=== PATIENT | male | born 1970 | race American Indian/Alaskan Native ===

== ENCOUNTER → 2017-11-25 09:22 | Outpatient (CLI) | payer OTHER, SELFPAY ==
[2017-11-25 11:00] LABS: Hemoglobin A1C% w Est Avg Glu 10.7 % (4.0-6.0)
[2017-11-25 11:10] LABS: Albumin 4.4 g/dL (3.5-5.0); HEMOLYSIS < 15 (0-50); Potassium 3.9 mmol/L (3.4-5.1); Sodium 141 mmol/L (137-145)
[2017-11-25 11:27] LABS: Alanine Aminotransferase 41 IU/L (21-72); Albumin Globulin Ratio 1.2 (1.0-2.8); Alkaline Phosphatase 88 U/L (38-126); Aspartate Aminotransferase 24 IU/L (17-59); Bilirubin Total 0.8 mg/dL (0.2-1.3); Calcium 9.1 mg/dL (8.4-10.2); Cholesterol 244 mg/dL (140-199); Estimated Glomerular Filt Rate > 60.0 mL/min (>60); Globulin 3.6 g/dL (1.7-4.1); Glucose 241 mg/dL (70-100); HDL Cholesterol 37 mg/dL (40-60); Triglycerides 439 mg/dL (35-150)
== END ==
PROVIDERS: Visit Provider Internal Medicine
DX: E11.9 Type 2 diabetes mellitus without complications (principal); E78.5 Hyperlipidemia, unspecified
CPT/HCPCS: 36415; 80053; 80061; 83036

== ENCOUNTER → 2018-02-05 15:40 | Outpatient (CLI) | payer OTHER, SELFPAY ==
[2018-02-05 17:22] LABS: Hemoglobin A1C% w Est Avg Glu 6.3 % (4.0-6.0)
[2018-02-05 17:27] LABS: Alanine Aminotransferase 33 IU/L (21-72); Albumin 4.7 g/dL (3.5-5.0); Albumin Globulin Ratio 1.5 (1.0-2.8); Alkaline Phosphatase 55 U/L (38-126); Aspartate Aminotransferase 27 IU/L (17-59); BUN Creatinine Ratio 13.8 (6-22); Bilirubin Total 0.6 mg/dL (0.2-1.3); Blood Urea Nitrogen 11 mg/dL (9-20); Calcium 9.8 mg/dL (8.4-10.2); Carbon Dioxide 31 mmol/L (22-32); Chloride 102 mmol/L (98-107); Cholesterol 116 mg/dL (140-199); Estimated Glomerular Filt Rate > 60.0 mL/min (>60); Globulin 3.2 g/dL (1.7-4.1); Glucose 80 mg/dL (70-100); HDL Cholesterol 39 mg/dL (40-60); HEMOLYSIS < 15 (0-50); LDL Cholesterol Calculated 47 mg/dL (<100); Potassium 4.9 mmol/L (3.4-5.1); Sodium 143 mmol/L (137-145); Total Protein 7.9 g/dL (6.3-8.2); Triglycerides 149 mg/dL (35-150)
== END ==
PROVIDERS: Visit Provider Internal Medicine
DX: E11.9 Type 2 diabetes mellitus without complications (principal)
CPT/HCPCS: 36415; 80053; 80061; 83036

== ENCOUNTER → 2019-08-14 19:00 | Outpatient (CLI) | payer OTHER, SELFPAY ==
--- NOTE | 2019-08-14 | DI.MRI.S_ITS ---
PROCEDURE: MR SHOULDER RT WO CON INDICATIONS: Other specific arthropathies, not elsewhere classi TECHNIQUE: Noncontrast oblique coronal T2 fast spin echo with fat saturation, oblique sagittal T1 spin echo and T2 fast spin echo with fat saturation, axial T1 spin echo and T2 fast spin echo with fat saturation through the shoulder. COMPARISON: None. FINDINGS: Image quality: Excellent. Rotator cuff: There is tendinosis and low to moderate grade articular and bursal surface partial-thickness tear involving distal supraspinatus and infraspinatus at their insertions greater tuberosity of humeral head extending to musculotendinous junction. There is distal subscapularis tendinosis or low-grade intrasubstance partial thickness tear. No definite full-thickness rotator cuff tendon rupture. Sagittal images demonstrate mild supraspinatus muscle atrophy. Bones and bursae: No bone marrow contusions or fractures. Moderate acromioclavicular joint osteoarthritis is seen with downward osteophyte formation present on musculotendinous junction of supraspinatus. Moderate lateral humeral joint osteoarthritic changes also noted. There is small amount of joint effusion and subacromial subdeltoid bursal fluid. No gross intra-articular loose body. Capsule and soft tissues: In the absence of intra-articular contrast, there is suggestion of superior labral tear extending from 11 to 1:00 position. The glenohumeral ligaments appear intact. Tendinosis and low-grade partial-thickness tear involving proximal intra-articular portion of long head of biceps tendon is also noted. The rotator interval appears normal, without fibrosis. The coracohumeral ligament is normal in thickness. IMPRESSION: 1. Tendinosis and low to moderate grade articular and bursal surface partial-thickness tear involving distal supraspinatus at the insertion of humeral head extending to musculotendinous junction. Tendinosis and low-grade intrasubstance partial-thickness tear involving distal subscapularis. Tendinosis and low-grade partial-thickness tear involving proximal intra-articular portion of long head of biceps tendon. 2. Mild supraspinatus muscle atrophy. 3. Moderate acromioclavicular joint and glenohumeral joint osteoarthritis. 4. Suggestion of superior labral tear at 11 to 1:00 position. Dictated by: Keaton Oleary M.D. on 08/17/2019 at 8:20 Approved by: Keaton Oleary M.D. on 08/17/2019 at 8:29
== END ==
PROVIDERS: Referring Provider Family Medicine; Visit Provider Family Medicine
DX: M75.111 Incomplete rotator cuff tear or rupture of right shoulder, not specified as traumatic (principal); S46.111A Strain of muscle, fascia and tendon of long head of biceps, right arm, initial encounter; M19.011 Primary osteoarthritis, right shoulder
CPT/HCPCS: 73221

== ENCOUNTER → 2020-04-04 12:09 | Outpatient (CLI) | payer OTHER, SELFPAY ==
[2020-04-06 10:36] LABS: Thyrotropin Receptor AB 7.56 IU/L (0.00-1.75)
== END ==
PROVIDERS: PCP Physician Assistant; Referring Provider Family Medicine; Visit Provider Family Medicine
DX: E05.90 Thyrotoxicosis, unspecified without thyrotoxic crisis or storm (principal)
CPT/HCPCS: 36415; 83520

== ENCOUNTER → 2020-10-05 12:48 | Outpatient (CLI) | payer OTHER, SELFPAY ==
--- NOTE | 2020-10-05 | DI.US.S_ITS ---
PROCEDURE: US ABDOMEN INDICATIONS: RIGHT UPPER QUADRANT PAIN TECHNIQUE: Real-time scanning was performed of the abdominal and retroperitoneal organs, with image documentation. COMPARISON: [facility], US, ABDOMEN COMPLETE, 12/09/2012, 9:00. FINDINGS: The liver demonstrates normal size. The liver demonstrates generalized mildly increased echogenicity. This decreases ultrasound sensitivity for detection of hepatic masses. However, the left lobe of the liver is not well seen. The main portal vein demonstrates normal size and demonstrates normal appearing, hepatopetal flow. A mobile gallstone is seen that measures up to 8.7 cm. The gallbladder wall is not thickened, measuring 3 mm or less. No specific pericholecystic fluid is seen. The sonographic Walker sign is negative. The biliary ducts and pancreas are not well seen. This study is overall limited by bowel gas. IMPRESSION: A single mobile gallstone is seen, yet without additional sonographic signs of cholecystitis. Please correlate with physical examination findings, patient presentation, and laboratory values. The liver demonstrates increased echogenicity. This finding is nonspecific, yet it is most commonly attributed to fatty infiltration. Dictated by: Srinivasan Trujillo M.D. on 10/05/2020 at 12:41 Approved by: Srinivasan Trujillo M.D. on 10/05/2020 at 12:42
== END ==
PROVIDERS: PCP Physician Assistant; Referring Provider Family Medicine; Visit Provider Family Medicine
DX: R10.11 Right upper quadrant pain (principal); K80.20 Calculus of gallbladder without cholecystitis without obstruction
CPT/HCPCS: 76705

== ENCOUNTER 2023-04-24 05:13 | Inpatient (IN) | payer OTHER, SELFPAY ==
[2023-04-24] VITALS (17 sets, daily range): BP systolic 106–167; BP diastolic 60–78; PULSE 52–99; RESP 12–20; TEMP 36.7–38.3; O2SAT 93–99; BMI 27.1; BMI 34.5; BMI 33.2
--- NOTE | 2023-04-24 | PATH_ITS ---
[facility] Accession Number: [id number] No. of containers..01 Tissue . 01 Material submitted: . gallbladder - GALLBLADDER AND CONTENTS . 01 Diagnosis: Gallbladder and Contents, Cholecystectomy: Mild chronic focally active calculous cholecystitis. Negative for dysplasia and malignancy. MRV 04/26/2023 1135 Local . 01 Electronically signed: . Luis Gonzalez MD, Pathologist NPI- [id number] . 01 Gross description: . Received in formalin, labeled with the patient's name and gallbladder and contents, is a 7.1 x 3.2 cm, pink-moraes, smooth and glistening gallbladder with a focally ragged and cauterized liver bed resection margin. The gallbladder is intact, and the cystic duct margin is inked blue. The mucosa is orange-moraes with minimal flecking, and a wall thickness of 0.3 cm. There are multiple dark nodular calculi within the bile for an aggregate of 2 x 1 x 0.6 cm. [employer] Filling [employer] sections are submitted in A1. ([id number]) /MRV 04/25/2023 1318 Local . 01 Pathologist provided ICD-10: K80.10 . 01 CPT . 282253 Specimen Comment: A courtesy copy of this report has been sent to [phone] Performed at: 01 [facility] [address] [place] [address], [place], [place] [id number] MD Suresh Lozoya MD Phone: [phone]
--- NOTE | 2023-04-24 05:24 | DI.US.S_ITS ---
PROCEDURE: US ABDOMEN LIMITED INDICATIONS: RUQ pain, known GB disease TECHNIQUE: Real-time scanning was performed of the abdominal and retroperitoneal organs, with image documentation. COMPARISON: [facility], US, US ABDOMEN COMPLETE, 10/05/2020, 13:01. FINDINGS: Liver: Increased echogenicity of the liver. The liver is normal in size. Gallbladder: Several mobile gallstones measuring up to 1.6 centimeters. Several subcentimeter gallstones are nonmobile. Gallbladder wall ranges from 1.1-3 millimeters in thickness. . Biliary ducts: Intrahepatic bile ducts are non-dilated. Extrahepatic bile duct caliber measures 5.2 mm. Normal is 6-7 mm or less in diameter, or 10 mm or less post-cholecystectomy. Pancreas: Not seen secondary to overlying bowel gas IMPRESSION: Cholelithiasis with several nonmobile stones. Gallbladder wall is borderline thickened. Findings may represent early acute cholecystitis and clinical correlation is recommended. Increased hepatic echogenicity noted possibly related to hepatic steatosis but other sources of hepatocellular disease or hepatic cirrhosis cannot be excluded. Recommend clinical correlation. Findings are concordant with preliminary interpretation provided by [facility]. Dictated by: Damian Teixeira M.D. on 04/24/2023 at 8:12 Approved by: Damian Teixeira M.D. on 04/24/2023 at 8:15
--- NOTE | 2023-04-24 05:26 | ED_ITS ---
HPI - Abdominal Pain <Gabriele Núñez DO - Last Filed: 04/25/23 01:01> General Chief Complaint: Abdominal Pain Stated Complaint: rt abd pain Time Seen by Provider: 04/24/23 05:24 Source: patient Mode of arrival: Ambulatory History of Present Illness HPI narrative: 52-year-old male former smoker with history of diabetes presents with his in the chief complaint of severe right upper quadrant pain with radiation to his back. He states he has known gallbladder disease in this feels like prior attacks. It started after eating some potatoes and possibly crab last night. His pain is worse when he eats or drinks and at times when he moves. He is nauseated but denies any vomiting. He is had no fever or chills. Denies any change in bowel habits and has no urinary complaints Related Data Home Medications Medication Instructions Recorded Confirmed atenolol 25 mg tablet 25 mg PO DAILY 04/24/23 04/24/23 metformin 1,000 mg tablet 1,000 mg PO DAILY 04/24/23 04/24/23 methimazole 5 mg tablet 5 mg PO Q OTHER DAY 04/24/23 04/24/23 Previous Rx's Medication Instructions Recorded rosuvastatin 20 mg tablet 20 mg PO DAILY #7 tabs 05/20/18 oxycodone 5 mg tablet 5 mg PO Q3HR PRN Pain, Moderate 04/25/23 (4-6) #20 tabs Allergies Allergy/AdvReac Type Severity Reaction Status Date / Time shellfish derived Allergy Severe SWELLING Verified 04/24/23 10:25 [SHELLFISH DERIVED] Review of Systems <DO Alma Rosario Last Filed: 04/25/23 01:01> Review of Systems Narrative: GENERAL: Denies chills, fatigue, malaise, fever, sweats. HEENT: Denies sinus pain, ear pain, sore throat, difficulty swallowing, dizziness. RESPIRATORY: Denies dyspnea, cough, wheezing, hemoptysis, sputum. CARDIOVASCULAR: Denies chest pain, palpitations, orthopnea, edema, GASTROINTESTINAL: See HPI : Denies dysuria, frequency, incontinence, hematuria, urinary retention. MUSCULOSKELETAL: denies weakness, joint pain, or bony pain SKIN: Denies rash, skin lesions, or other NEUROLOGIC: Denies weakness, headache, numbness, change in speech, confusion, seizures, incoordination. PSYCHIATRIC: No concerning psychosocial issues. 12 point review of systems is negative except for those stated above Patient History <Gabriele Núñez DO - Last Filed: 04/25/23 01:01> Medical History Diabetes mellitus Hyperlipidemia Microalbuminuria (01/2017) Surgical History Status post appendectomy Social History household members: spouse Smoking Status: Former smoker alcohol intake: former Smoking Status: Former smoker Substance Use Type: does not use Exam <Gabriele Núñez DO - Last Filed: 04/25/23 01:01> Narrative Exam Narrative: GENERAL: [52] year old patient appears stated age. Well-developed patient, in obvious distress. In pain, rubbing his right side HEAD: Atraumatic. Normocephalic. EYES: Pupils equal round and reactive. Extraocular motions intact. No scleral icterus. No injection or drainage. ENT: Nose without bleeding, purulent drainage. Throat without erythema, tonsillar hypertrophy or exudate. Airway patent. NECK: Trachea midline. Non tender CARDIOVASCULAR: Regular rate and rhythm without murmurs, gallops, or rubs. RESPIRATORY: Clear to auscultation. Breath sounds equal bilaterally. No wheezes, rales, or rhonchi. GASTROINTESTINAL: Abdomen soft, right upper quadrant pain on exam, nondistended. EXTREMITIES: No edema or joint tenderness. BACK: Nontender without deformity or crepitance. No flank tenderness. NEURO: AOx3. SKIN: No rash or erythema of visible areas Initial Vital Signs Initial Vital Signs: Vital Signs Temperature 98.4 F 04/24/23 05:21 Pulse Rate 68 04/24/23 05:21 Respiratory Rate 18 04/24/23 05:21 Blood Pressure 135/60 04/24/23 05:21 Pulse Oximetry 98 04/24/23 05:21 Oxygen Delivery Method Room Air 04/24/23 05:21 <Vlad Lipscomb MD - Last Filed: 04/30/23 08:24> Initial Vital Signs Initial Vital Signs: Vital Signs Temperature 98.4 F 04/24/23 05:21 Pulse Rate 68 04/24/23 05:21 Respiratory Rate 18 04/24/23 05:21 Blood Pressure 135/60 04/24/23 05:21 Pulse Oximetry 98 04/24/23 05:21 Oxygen Delivery Method Room Air 04/24/23 05:21 Course <Gabriele Núñez DO - Last Filed: 04/25/23 01:01> Orders Ordered: Discontinued Medications Acetaminophen (Acetaminophen 325 Mg Tablet) 650 mg PO Q6H PRN PRN Reason: Fever/Mild Pain (1-3) Atorvastatin Calcium (Atorvastatin 20 Mg Tablet) 40 mg PO BEDTIME PILI Hydromorphone HCl (Hydromorphone 0.5 Mg Inj) 0.5 mg IV NOW ONE Stop: 04/24/23 05:25 Last Admin: 04/24/23 05:31 Dose: 0.5 mg Documented By: COMPA Hydromorphone HCl (Hydromorphone 1 Mg Inj) 0 mg IV Q5MIN PRN PRN Reason: Pain, Mild (1-3) Hydromorphone HCl (Hydromorphone 1 Mg Inj) 0 mg IV Q5MIN PRN PRN Reason: surgical pain Hydromorphone HCl (Hydromorphone 1 Mg Inj) 0 mg IV Q5MIN PRN PRN Reason: Pain, Severe (7-10) Last Admin: 04/24/23 12:20 Dose: 1 mg Documented By: PETER Sodium Chloride (Normal Saline 0.9%) 1,000 mls @ 1,000 mls/hr IV BOLUS ONE Stop: 04/24/23 06:23 Last Infusion: 04/24/23 06:19 Dose: Infused Documented By: Admin: 04/24/23 05:31 Dose: 1,000 mls/hr Documented By: COMPA Piperacillin Sod/Tazobactam (Sod 4.5 gm/ Sodium Chloride) 100 mls @ 200 mls/hr IV NOW ONE Stop: 04/24/23 06:29 Last Infusion: 04/24/23 07:35 Dose: Infused Documented By: Admin: 04/24/23 06:57 Dose: 200 mls/hr Documented By: TOMASZ Lactated Ringer's (Lactated Ringers) 1,000 mls @ 84 mls/hr IV NOW ONE Stop: 04/24/23 22:23 Last Admin: 04/24/23 10:31 Dose: 84 mls/hr Documented By: IF Piperacillin Sod/Tazobactam (Sod 4.5 gm/ Sodium Chloride) 100 mls @ 200 mls/hr IV NOW ONE Stop: 04/24/23 10:44 Last Infusion: 04/24/23 11:35 Dose: Infused Documented By: Admin: 04/24/23 11:21 Dose: 200 mls/hr Documented By: CHRISTIAN Piperacillin Sod/Tazobactam (Sod 3.375 gm/ Sodium Chloride) 100 mls @ 25 mls/hr IV Q8H [facility] Last Admin: 04/24/23 13:44 Dose: Not Given Documented By: CAROL Dextrose (D10w) 100 mls @ 1,200 mls/hr IV PRN PRN PRN Reason: Hypoglycemia Piperacillin Sod/Tazobactam (Sod 3.375 gm/ Sodium Chloride) 100 mls @ 25 mls/hr IV Q8H [facility] Last Infusion: 04/25/23 12:46 Dose: Infused Documented By: Admin: 04/25/23 06:33 Dose: 25 mls/hr Documented By: Infusion: 04/25/23 04:33 Dose: Infused Documented By: Admin: 04/24/23 23:01 Dose: 25 mls/hr Documented By: Infusion: 04/24/23 19:52 Dose: Infused Documented By: Admin: 04/24/23 14:02 Dose: 25 mls/hr Documented By: CAROL Insulin Human Lispro (Insulin Lispro 100 Unit/Ml 3ml Vial) 0 unit SUBCUT [facility]; Protocol Last Admin: 04/25/23 12:00 Dose: 2 unit Documented By: YARED Co-signed By: ARACELI Admin: 04/25/23 07:57 Dose: 1 unit Documented By: ARACELI Co-signed By: Admin: 04/24/23 21:00 Dose: 1 unit Documented By: ROSETTA Co-signed By: (2) Admin: 04/24/23 17:39 Dose: 2 unit Documented By: CAROL Co-signed By: Admin: 04/24/23 13:34 Dose: 1 unit Documented By: CAROL Co-signed By: Naloxone HCl (Naloxone 0.4 Mg/Ml Vial) 0.2 mg IV Q2MIN PRN PRN Reason: Opiate Reversal Non-Formulary Medication ( Methimazole 5mg Tablet) 1 each PO EVERY OTHER DAY PILI Ondansetron HCl (Ondansetron 4 Mg/2 Ml Inj) 4 mg IV NOW ONE Stop: 04/24/23 05:25 Last Admin: 04/24/23 05:31 Dose: 4 mg Documented By: COMPA Ondansetron HCl (Ondansetron 4 Mg/2 Ml Inj) 4 mg IV NOW PRN PRN Reason: Nausea And Vomiting Ondansetron HCl (Ondansetron 4 Mg/2 Ml Inj) 4 mg IV Q8HR PRN PRN Reason: Nausea And Vomiting Oxycodone HCl (Oxycodone Ir 5 Mg Tablet) 5 mg PO PACUNOW PRN PRN Reason: Mild or moderate pain Oxycodone HCl (Oxycodone Ir 5 Mg Tablet) 5 mg PO Q3HR PRN PRN Reason: Pain, Moderate (4-6) Last Admin: 04/25/23 13:29 Dose: 5 mg Documented By: Admin: 04/25/23 04:02 Dose: 5 mg Documented By: Admin: 04/24/23 21:00 Dose: 5 mg Documented By: Admin: 04/24/23 14:14 Dose: 5 mg Documented By: CAROL Oxycodone HCl (Oxycodone Ir 10 Mg Tablet) 10 mg PO Q3HR PRN PRN Reason: Pain, Severe (7-10) Reevaluation(s) Reevaluation #1: Improved symptoms after pain control Consultations Consultation #1: Discussed with on-call surgeon, Dr. Marinelli, happy to be involved for surgical coverage with recommends admission to the hospitalist for diabetic management Vital Signs Vital signs: Vital Signs - 8 hr 04/24/23 05:21 04/24/23 07:08 04/24/23 08:30 Temperature 98.4 F 100.4 F H Pulse Rate 68 98 H Respiratory Rate 18 20 Blood Pressure 135/60 Pulse Oximetry 98 97 Oxygen Delivery Method Room Air Room Air 04/24/23 08:45 04/24/23 08:58 Temperature Pulse Rate 98 H 99 H Respiratory Rate 20 18 Blood Pressure 121/69 Pulse Oximetry 99 99 Oxygen Delivery Method Room Air Room Air <Vlad Lipscomb MD - Last Filed: 04/30/23 08:24> Orders Ordered: Discontinued Medications Acetaminophen (Acetaminophen 325 Mg Tablet) 650 mg PO Q6H PRN PRN Reason: Fever/Mild Pain (1-3) Atorvastatin Calcium (Atorvastatin 20 Mg Tablet) 40 mg PO BEDTIME PILI Hydromorphone HCl (Hydromorphone 0.5 Mg Inj) 0.5 mg IV NOW ONE Stop: 04/24/23 05:25 Last Admin: 04/24/23 05:31 Dose: 0.5 mg Documented By: COMPA Hydromorphone HCl (Hydromorphone 1 Mg Inj) 0 mg IV Q5MIN PRN PRN Reason: Pain, Mild (1-3) Hydromorphone HCl (Hydromorphone 1 Mg Inj) 0 mg IV Q5MIN PRN PRN Reason: surgical pain Hydromorphone HCl (Hydromorphone 1 Mg Inj) 0 mg IV Q5MIN PRN PRN Reason: Pain, Severe (7-10) Last Admin: 04/24/23 12:20 Dose: 1 mg Documented By: PETER Sodium Chloride (Normal Saline 0.9%) 1,000 mls @ 1,000 mls/hr IV BOLUS ONE Stop: 04/24/23 06:23 Last Infusion: 04/24/23 06:19 Dose: Infused Documented By: Admin: 04/24/23 05:31 Dose: 1,000 mls/hr Documented By: COMPA Piperacillin Sod/Tazobactam (Sod 4.5 gm/ Sodium Chloride) 100 mls @ 200 mls/hr IV NOW ONE Stop: 04/24/23 06:29 Last Infusion: 04/24/23 07:35 Dose: Infused Documented By: Admin: 04/24/23 06:57 Dose: 200 mls/hr Documented By: TOMASZ Lactated Ringer's (Lactated Ringers) 1,000 mls @ 84 mls/hr IV NOW ONE Stop: 04/24/23 22:23 Last Admin: 04/24/23 10:31 Dose: 84 mls/hr Documented By: IF Piperacillin Sod/Tazobactam (Sod 4.5 gm/ Sodium Chloride) 100 mls @ 200 mls/hr IV NOW ONE Stop: 04/24/23 10:44 Last Infusion: 04/24/23 11:35 Dose: Infused Documented By: Admin: 04/24/23 11:21 Dose: 200 mls/hr Documented By: CHRISTIAN Piperacillin Sod/Tazobactam (Sod 3.375 gm/ Sodium Chloride) 100 mls @ 25 mls/hr IV Q8H [facility] Last Admin: 04/24/23 13:44 Dose: Not Given Documented By: CAROL Dextrose (D10w) 100 mls @ 1,200 mls/hr IV PRN PRN PRN Reason: Hypoglycemia Piperacillin Sod/Tazobactam (Sod 3.375 gm/ Sodium Chloride) 100 mls @ 25 mls/hr IV Q8H [facility] Last Infusion: 04/25/23 12:46 Dose: Infused Documented By: Admin: 04/25/23 06:33 Dose: 25 mls/hr Documented By: Infusion: 04/25/23 04:33 Dose: Infused Documented By: Admin: 04/24/23 23:01 Dose: 25 mls/hr Documented By: Infusion: 04/24/23 19:52 Dose: Infused Documented By: Admin: 04/24/23 14:02 Dose: 25 mls/hr Documented By: CAROL Insulin Human Lispro (Insulin Lispro 100 Unit/Ml 3ml Vial) 0 unit SUBCUT [facility]; Protocol Last Admin: 04/25/23 12:00 Dose: 2 unit Documented By: YARED Co-signed By: ARACELI Admin: 04/25/23 07:57 Dose: 1 unit Documented By: ARACELI Co-signed By: Admin: 04/24/23 21:00 Dose: 1 unit Documented By: ROSETTA Co-signed By: (2) Admin: 04/24/23 17:39 Dose: 2 unit Documented By: CAROL Co-signed By: Admin: 04/24/23 13:34 Dose: 1 unit Documented By: CAROL Co-signed By: Naloxone HCl (Naloxone 0.4 Mg/Ml Vial) 0.2 mg IV Q2MIN PRN PRN Reason: Opiate Reversal Non-Formulary Medication ( Methimazole 5mg Tablet) 1 each PO EVERY OTHER DAY [facility] Ondansetron HCl (Ondansetron 4 Mg/2 Ml Inj) 4 mg IV NOW ONE Stop: 04/24/23 05:25 Last Admin: 04/24/23 05:31 Dose: 4 mg Documented By: COMPA Ondansetron HCl (Ondansetron 4 Mg/2 Ml Inj) 4 mg IV NOW PRN PRN Reason: Nausea And Vomiting Ondansetron HCl (Ondansetron 4 Mg/2 Ml Inj) 4 mg IV Q8HR PRN PRN Reason: Nausea And Vomiting Oxycodone HCl (Oxycodone Ir 5 Mg Tablet) 5 mg PO PACUNOW PRN PRN Reason: Mild or moderate pain Oxycodone HCl (Oxycodone Ir 5 Mg Tablet) 5 mg PO Q3HR PRN PRN Reason: Pain, Moderate (4-6) Last Admin: 04/25/23 13:29 Dose: 5 mg Documented By: Admin: 04/25/23 04:02 Dose: 5 mg Documented By: Admin: 04/24/23 21:00 Dose: 5 mg Documented By: Admin: 04/24/23 14:14 Dose: 5 mg Documented By: CAROL Oxycodone HCl (Oxycodone Ir 10 Mg Tablet) 10 mg PO Q3HR PRN PRN Reason: Pain, Severe (7-10) Vital Signs Vital signs: Vital Signs - 8 hr 04/24/23 05:21 04/24/23 07:08 04/24/23 08:30 Temperature 98.4 F 100.4 F H Pulse Rate 68 98 H Respiratory Rate 18 20 Blood Pressure 135/60 Pulse Oximetry 98 97 Oxygen Delivery Method Room Air Room Air 04/24/23 08:45 04/24/23 08:58 Temperature Pulse Rate 98 H 99 H Respiratory Rate 20 18 Blood Pressure 121/69 Pulse Oximetry 99 99 Oxygen Delivery Method Room Air Room Air MDM - Abdominal Pain <Gabriele Núñez DO - Last Filed: 04/25/23 01:01> Lab Data 04/25/23 04:00 04/25/23 04:00 Labs: Lab Results 04/24/23 Range/Units 05:24 WBC 7.4 (4.5-11.0) X10^3/uL RBC 5.11 (4.5-5.9) X10^6/uL Hgb 15.2 (13.5-17.5) g/dL Hct 44.7 (41-53) % MCV 87.5 (80-100) fL MCH 29.8 (26-34) PG MCHC 34.1 (30-36) % RDW 13.9 (11.6-14.8) % Plt Count 219 (150-400) X10^3/uL Neut % (Auto) 83.2 H (50-75) % Lymph % (Auto) 10.8 L (25-40) % [place] % (Auto) 5.1 (3-14) % Eos % (Auto) 0.5 L (2-4) % Baso % (Auto) 0.4 (0-2) % Neut # (Auto) 6200 (9601-5424) /uL Lymph # (Auto) 800 L (7309-7548) /uL [place] # (Auto) 400 (0-900) /uL Eos # (Auto) 0 (0-450) /uL Baso # (Auto) 0 (0-100) /uL Sodium 139 (137-145) mmol/L Potassium 4.4 (3.4-5.1) mmol/L Chloride 103 (98-107) mmol/L Carbon Dioxide 27 (22-32) mmol/L BUN 9 (9-20) mg/dL Creatinine 0.78 (0.66-1.25) mg/dL Estimated GFR > 60 (>60) mL/min BUN/Creatinine Ratio 11.5 (6-22) Glucose 167 H (70-100) mg/dL Calcium 9.4 (8.4-10.2) mg/dL Total Bilirubin 2.4 H (0.2-1.3) mg/dL AST 313 H (17-59) IU/L ALT 220 H (<50) IU/L Alkaline Phosphatase 84 (38-126) U/L Total Protein 8.6 H (6.3-8.2) g/dL Albumin 4.8 (3.5-5.0) g/dL Globulin 3.8 (1.7-4.1) g/dL Albumin/Globulin Ratio 1.3 (1.0-2.8) Lipase 143 (23-300) U/L Point of care testing: Urine Dip Bedside Urine Glucose Negative Bedside Urine Bilirubin - Negative Bedside Urine Ketone - Negative Urine Specific [place] 1.005 Bedside Urine Occult Blood - Negative Bedside Urine pH 8.0 Bedside Urine Protein - Negative Bedside Urine Urobilinogen - Negative Bedside Urine Nitrite - Negative Bedside Urine Leukocytes - Negative Esterase MDM Narrative Medical decision making narrative: [52] year old patient presents with right upper quadrant pain Multiple etiologies for patient's symptoms considered including, but not limited to: [Gallbladder disease versus bowel obstruction versus pancreatitis versus other] Prior Charts reviewed in our EMR Primary Historian: patient Labs reviewed and interpreted by myself: No leukocytosis though there is a relative left shift, primary electrolytes within normal, glucose slightly elevated at 167, T bili 2.4, AST 313, ALT 220, alk phos 84 Imaging reviewed: Ultrasound demonstrates cholelithiasis with several nonmobile stones in the proximal gallbladder with gallbladder wall thickening and wall edema, no biliary obstruction Consultations: Discussed with on-call surgeon Dr. Marinelli. Recommends NPO, pain control, antibiotics, admission to hospitalist, likely surgical intervention this afternoon <Vlad Lipscomb MD - Last Filed: 04/30/23 08:24> Lab Data Labs: Lab Results 04/24/23 Range/Units 05:24 WBC 7.4 (4.5-11.0) X10^3/uL RBC 5.11 (4.5-5.9) X10^6/uL Hgb 15.2 (13.5-17.5) g/dL Hct 44.7 (41-53) % MCV 87.5 (80-100) fL MCH 29.8 (26-34) PG MCHC 34.1 (30-36) % RDW 13.9 (11.6-14.8) % Plt Count 219 (150-400) X10^3/uL Neut % (Auto) 83.2 H (50-75) % Lymph % (Auto) 10.8 L (25-40) % [place] % (Auto) 5.1 (3-14) % Eos % (Auto) 0.5 L (2-4) % Baso % (Auto) 0.4 (0-2) % Neut # (Auto) 6200 (7153-2996) /uL Lymph # (Auto) 800 L (8865-9316) /uL [place] # (Auto) 400 (0-900) /uL Eos # (Auto) 0 (0-450) /uL Baso # (Auto) 0 (0-100) /uL Sodium 139 (137-145) mmol/L Potassium 4.4 (3.4-5.1) mmol/L Chloride 103 (98-107) mmol/L Carbon Dioxide 27 (22-32) mmol/L BUN 9 (9-20) mg/dL Creatinine 0.78 (0.66-1.25) mg/dL Estimated GFR > 60 (>60) mL/min BUN/Creatinine Ratio 11.5 (6-22) Glucose 167 H (70-100) mg/dL Calcium 9.4 (8.4-10.2) mg/dL Total Bilirubin 2.4 H (0.2-1.3) mg/dL AST 313 H (17-59) IU/L ALT 220 H (<50) IU/L Alkaline Phosphatase 84 (38-126) U/L Total Protein 8.6 H (6.3-8.2) g/dL Albumin 4.8 (3.5-5.0) g/dL Globulin 3.8 (1.7-4.1) g/dL Albumin/Globulin Ratio 1.3 (1.0-2.8) Lipase 143 (23-300) U/L Point of care testing: Urine Dip Bedside Urine Glucose Negative Bedside Urine Bilirubin - Negative Bedside Urine Ketone - Negative Urine Specific [place] 1.005 Bedside Urine Occult Blood - Negative Bedside Urine pH 8.0 Bedside Urine Protein - Negative Bedside Urine Urobilinogen - Negative Bedside Urine Nitrite - Negative Bedside Urine Leukocytes - Negative Esterase MDM Narrative Medical decision making narrative: [52] year old patient presents with right upper quadrant pain Multiple etiologies for patient's symptoms considered including, but not limited to: [Gallbladder disease versus bowel obstruction versus pancreatitis versus other] Prior Charts reviewed in our EMR Primary Historian: patient Labs reviewed and interpreted by myself: No leukocytosis though there is a relative left shift, primary electrolytes within normal, glucose slightly elevated at 167, T bili 2.4, AST 313, ALT 220, alk phos 84 Imaging reviewed: Ultrasound demonstrates cholelithiasis with several nonmobile stones in the proximal gallbladder with gallbladder wall thickening and wall edema, no biliary obstruction Consultations: Discussed with on-call surgeon Dr. Marinelli. Recommends NPO, pain control, antibiotics, admission to hospitalist, likely surgical intervention this afternoon April 24, 2023 at 7:00 a.m.Ruel: ?sign out from Dr Núñez, surgical service has been contacted. However patient to be admitted to hospitalist service with history of diabetes. Plan for surgery later this afternoon. Antibiotics have been started. No MRCP needed 10:00 a.m.. Spoke with hospitalist dr daniels, he will admit patient Discharge Plan Departure Patient Disposition: Admitted As Inpatient Clinical Impression: Acute cholecystitis Admit Date/Time: 04/24/23 10:29 Admit Provider: Arden Daniels
[2023-04-24 05:31] LABS: Add Manual Diff / Slide Review NO; Basophils Absolute Auto 0 /uL (0-100); Basophils Percent Auto 0.4 % (0-2); Eosinophils Absolute Auto 0 /uL (0-450); Eosinophils Percent Auto 0.5 % (2-4); Hematocrit 44.7 % (41-53); Hemoglobin 15.2 g/dL (13.5-17.5); Lymphocytes Absolute Auto 800 /uL (1100-4500); Lymphocytes Percent Auto 10.8 % (25-40); Mean Corpuscular HGB Conc 34.1 % (30-36); Mean Corpuscular Hemoglobin 29.8 PG (26-34); Mean Corpuscular Volume 87.5 fL (80-100); Monocytes Absolute Auto 400 /uL (0-900); Monocytes Percent Auto 5.1 % (3-14); Neutrophils Absolute Auto 6200 /uL (1500-7000); Neutrophils Percent Auto 83.2 % (50-75); Platelet Count 219 X10^3/uL (150-400); Red Blood Cell Count 5.11 X10^6/uL (4.5-5.9); Red Cell Distribution Width 13.9 % (11.6-14.8); White Blood Cell Count 7.4 X10^3/uL (4.5-11.0)
[2023-04-24] MEDS: HYDROMORPHONE 0.5 MG INJ IV (05:31)
[2023-04-24] MEDS: ONDANSETRON 4 MG/2 ML INJ IV (05:31)
[2023-04-24] MEDS: SODIUM CHLORIDE 0.9% 1,000 ML 1000 ML IV (05:31)
[2023-04-24 05:45] LABS: Alanine Aminotransferase 220 IU/L (<50); Albumin 4.8 g/dL (3.5-5.0); Albumin Globulin Ratio 1.3 (1.0-2.8); Alkaline Phosphatase 84 U/L (38-126); Aspartate Aminotransferase 313 IU/L (17-59); BUN Creatinine Ratio 11.5 (6-22); Bilirubin Total 2.4 mg/dL (0.2-1.3); Blood Urea Nitrogen 9 mg/dL (9-20); Calcium 9.4 mg/dL (8.4-10.2); Carbon Dioxide 27 mmol/L (22-32); Chloride 103 mmol/L (98-107); Estimated Glomerular Filt Rate > 60 mL/min (>60); Globulin 3.8 g/dL (1.7-4.1); Glucose 167 mg/dL (70-100); HEMOLYSIS 16 (0-50); Lipase 143 U/L (23-300); Potassium 4.4 mmol/L (3.4-5.1); Sodium 139 mmol/L (137-145); Total Protein 8.6 g/dL (6.3-8.2)
[2023-04-24] MEDS: PIPERACILLIN/TAZO 4.5 GM in SODIUM CHLORIDE 0.9% 100 ML IV ×2 (06:57→11:21)
--- NOTE | 2023-04-24 10:10 | PC.NURSE ---
Pt being transferred to pre-op by VIVIANE Fernandes.
--- NOTE | 2023-04-24 10:20 | P.CONS_ITS ---
History of Present Illness Consult details Date Patient Seen: 04/24/23 Time Patient Seen: 10:20 Chief complaint: rt abd pain Narrative: 52-year-old man with a history of diabetes and active tobacco use who presented to [facility] Emergency Department 04/24 with complaint of severe right upper quadrant pain. He is a history of biliary colic and this felt like a previous similar attack but persisted for a prolonged duration and was more severe in pain. At admission temperature 100.4? white blood cell count 7 total bilirubin 2.4, AST 310, ALT 220. Abdominal ultrasound personally reviewed demonstrates multiple gallstones with wall thickening. Previous abdominal surgery, open appendectomy. Meds Home Medications and Allergies Home Medications Medication Instructions Recorded Confirmed Type Glucose: Home Monitor 0 dev ##1 05/15/12 02/26/18 Rx blood sugar diagnostic (True #100 ea 11/27/17 02/26/18 Rx Metrix Glucose Test Strip) metformin 850 mg tablet 850 mg PO TID #270 tabs 02/26/18 Rx rosuvastatin 20 mg tablet 20 mg PO DAILY #7 tabs 05/20/18 Rx atenolol 25 mg tablet 25 mg PO DAILY 04/24/23 04/24/23 History methimazole 5 mg tablet 5 mg PO Q OTHER DAY 04/24/23 04/24/23 History Allergies Allergy/AdvReac Type Severity Reaction Status Date / Time shellfish derived Allergy Severe SWELLING Verified 04/24/23 10:25 [SHELLFISH DERIVED] Exam Vital Signs (past 8 hours): - 04/24/23 05:21 04/24/23 07:08 04/24/23 08:30 Temperature 98.4 F 100.4 F H Pulse Rate 68 98 H Respiratory Rate 18 20 Blood Pressure 135/60 Pulse Oximetry 98 97 Oxygen Delivery Method Room Air Room Air 04/24/23 08:45 04/24/23 08:58 Temperature Pulse Rate 98 H 99 H Respiratory Rate 20 18 Blood Pressure 121/69 Pulse Oximetry 99 99 Oxygen Delivery Method Room Air Room Air Oxygen Delivery Method Room Air Objective Labs 04/24/23 05:24 04/24/23 05:24 Labs: Laboratory Results - last 24 hr 04/24/23 05:24 WBC 7.4 RBC 5.11 Hgb 15.2 Hct 44.7 MCV 87.5 MCH 29.8 MCHC 34.1 RDW 13.9 Plt Count 219 Neut % (Auto) 83.2 H Lymph % (Auto) 10.8 L [place] % (Auto) 5.1 Eos % (Auto) 0.5 L Baso % (Auto) 0.4 Neut # (Auto) 6200 Lymph # (Auto) 800 L [place] # (Auto) 400 Eos # (Auto) 0 Baso # (Auto) 0 Sodium 139 Potassium 4.4 Chloride 103 Carbon Dioxide 27 BUN 9 Creatinine 0.78 Estimated GFR > 60 BUN/Creatinine Ratio 11.5 Glucose 167 H Calcium 9.4 Total Bilirubin 2.4 H AST 313 H ALT 220 H Alkaline Phosphatase 84 Total Protein 8.6 H Albumin 4.8 Globulin 3.8 Albumin/Globulin Ratio 1.3 Lipase 143 [facility] Medical History Diabetes mellitus Hyperlipidemia Microalbuminuria (01/2017) Surgical History Status post appendectomy Tobacco & Substance Use Smoking Status: Former smoker Assessment & Plan Assessment and plan (1) Acute cholecystitis: Status: Acute Assessment & Plan narrative: 52-year-old man history of diabetes and active tobacco use who presents with symptoms and radiographic findings consistent with acute cholecystitis. Labs and ultrasound personally reviewed. Slight hyperbilirubinemia normal common bile duct diameter less likely choledocolithiasis. Trend TB post op if remains elevated MRCP. I discussed these findings with the patient and his . I recommended that we proceed with a laparoscopic cholecystectomy. Overview of the operation was discussed. Operative risks including hemorrhage, infection, damage to surrounding structures, bile leak were discussed. Questions have been answered he is in agreement with this plan. He provides his written and verbal consent to proceed.
[2023-04-24] MEDS: LACTATED RINGERS 1,000 ML 84 ML IV (10:31)
--- NOTE | 2023-04-24 10:33 | SUR.OPER ---
Supine on padded OR bed, head on pillow, safety belt at thigh, left arm padded and tucked at side. Right arm secured on padded arm board <90 degrees abduction. Legs uncrossed. Padded footboard in place. Tape over blanket to secure lower legs.
--- NOTE | 2023-04-24 11:36 | SUR.OPER ---
Patient removed partial denture and placed in labelled denture container. Container taken with patient to PACU.
[2023-04-24] MEDS: HYDROMORPHONE 1 MG INJ IV (12:20)
--- NOTE | 2023-04-24 12:22 | PM.OP.1 ---
Operative Date/Time/Diagnoses Date of procedure: 04/24/23 Time of procedure: 12:22 Pre-op diagnosis: Acute cholecystitis Post-op diagnosis: same Procedure & Clinicians Procedure: Laparoscopic cholecystectomy Same procedure as scheduled: Yes Indications: 52-year-old man with symptoms and radiographic findings consistent with acute cholecystitis. Following discussion of the risks benefits and alternatives he elects to proceed with cholecystectomy. Surgeon: Erickson Whyte Click Yes if Unassisted: Yes Anesthesia Type: General Operative Notes Findings: Acute on chronic cholecystitis. Critical view of safety established. Specimen(s): other (Gallbladder) Estimated Blood Loss (mL): 10 Procedure in detail: The patient was placed supine on the table and bilateral lower extremity compression devices were applied. Anesthesia was induced they were intubated with an endotracheal tube and received 2g of Ancef. A time-out was performed. They were prepped and draped in sterile fashion. An infraumbilical incision was made. The fascia was elevated incised and the abdomen was entered atraumatically. A blunt tip 12mm balloon trocar was then inserted, pneumoperitoneum was established and inspection of the abdomen demonstrated no evidence of injury. They were placed head up and right side up and then a 11 mm port was placed high in the epigastrium and two 5mm in the right upper quadrant. The gallbladder was acutely inflamed. The gallbladder was grasped by the fundus and retracted over the liver and retracted laterally by the infundibulum. Using electrocautery the lateral plane between the gallbladder and the liver was opened towards the fundus. The gallbladder was then retracted laterally and the medial plane was developed in the same manner. With the gallbladder mobilized the bottom of the cystic plate was visualized. The hepatocystic triangle was meticulosly skeletonized with blunt dissection of fat and fibrous tissue from both the front and the back. Only two structures were then clearly seen entering the gallbladder the cystic duct and the cystic artery. With the critical view of safety fully established the cystic duct was clipped twice proximally and once distally using the 10 mm Weck hemoclip applied under direct visualization and then sharply divided. The cystic artery was divided in the same fashion. The gallbladder was removed from the liver bed using electro cautery. The liver bed was then inspected for hemostasis and this was achieved. The abdomen was irrigated with sterile saline and inspection was made that showed the clips in good position. The specimen was removed using Endo-Catch. The abdomen was desufflated. The umbilical fascia was closed with 0 Vicryl in a [id number] fashion under direct visualization. Skin incisions were irrigated and closed with 4-0 Monocryl. 30 ml of 0.25% bupivacaine was infiltrated into the subcutaneous tissue of the incisions. The wounds were sealed with Dermabond. Patient emerged from anesthesia was extubated and transferred to recovery in stable condition. The sponge and instrument count at the end of the operation was correct. Complications: none Post-operative Condition: stable Disposition: Acute Care
[2023-04-24] MEDS: INSULIN LISPRO 100 UNIT/ML 3ML VIAL SUBCUT ×3 (13:34→21:00)
[2023-04-24] MEDS: PIPERACILLIN/TAZO 3.375 GM in SODIUM CHLORIDE 0.9% 100 ML IV ×2 (14:02→23:01)
[2023-04-24] MEDS: OXYCODONE IR 5 MG TABLET PO ×2 (14:14→21:00)
--- NOTE | 2023-04-24 14:25 | PC.NURSE ---
Completed patient admission, pt resting comfortably, VSS, pain controlled with non-pharmacological and PRN medications. Pt due to void at 6pm, pt aware.
[2023-04-24 15:39] LABS: MRSA (Nasal) PCR Not Detected (Not Detect)
--- NOTE | 2023-04-24 18:35 | P.HP_ITS ---
History of Present Illness History of Present Illness Date Patient Seen: 04/24/23 Time Patient Seen: 15:00 Chief complaint: rt abd pain Narrative: Mr. Mike is a 52M with PMH DM who presents to the hospital with abdominal pain. He has known gallbladder disease. He had abdominal pain on his right upper quadrant that started after eating yesterday. He also had nausea so he presented to the hospital. In the ED workup was done, vitals showed fever to 101, heart rate 90s. Labs notable for WBC 7.4, hgb 15.2. Bili 2.4, AST 313, ALT 220. Abdominal ultrasound with several stones, gallbladder wall thickened. Surgery was consulted and recommended gallbladder removal. He was admitted for further treatment. [facility] Medical History Diabetes mellitus Hyperlipidemia Microalbuminuria (01/2017) Surgical History Status post appendectomy Social History household members: spouse Smoking Status: Former smoker alcohol intake: former Meds Home Medications and Allergies Home Medications Medication Instructions Recorded Confirmed Type rosuvastatin 20 mg tablet 20 mg PO DAILY #7 tabs 05/20/18 04/24/23 Rx atenolol 25 mg tablet 25 mg PO DAILY 04/24/23 04/24/23 History metformin 1,000 mg tablet 1,000 mg PO DAILY 04/24/23 04/24/23 History methimazole 5 mg tablet 5 mg PO Q OTHER DAY 04/24/23 04/24/23 History Allergies Allergy/AdvReac Type Severity Reaction Status Date / Time shellfish derived Allergy Severe SWELLING Verified 04/24/23 10:25 [SHELLFISH DERIVED] Review of Systems Review of Systems Narrative: 14 systems reviewed and negative aside from what is noted in HPI Exam Vital Signs (past 8 hours): - 04/24/23 12:05 04/24/23 12:10 04/24/23 12:15 Temperature 101 F H Pulse Rate 96 H 92 H 89 Respiratory Rate 12 13 13 Blood Pressure 116/68 116/70 111/64 Pulse Oximetry 96 96 96 Oxygen Delivery Method Room Air Room Air Room Air Oxygen Flow Rate 04/24/23 12:20 04/24/23 12:30 04/24/23 12:45 Temperature 101 F H 99.9 F H Pulse Rate 85 83 Respiratory Rate 12 12 Blood Pressure 110/69 106/69 Pulse Oximetry 98 96 Oxygen Delivery Method Nasal Cannula Nasal Cannula Oxygen Flow Rate 2 2 04/24/23 12:58 04/24/23 13:12 04/24/23 13:30 Temperature 99.9 F H 99.0 F Pulse Rate 89 71 Respiratory Rate 18 18 Blood Pressure 117/62 113/66 Pulse Oximetry 93 95 Oxygen Delivery Method Room Air Oxygen Flow Rate 0 0 04/24/23 14:30 04/24/23 16:00 Temperature 98.3 F 98.0 F Pulse Rate 73 60 Respiratory Rate 18 18 Blood Pressure 111/64 167/78 H Pulse Oximetry 95 96 Oxygen Delivery Method Oxygen Flow Rate 0 0 Oxygen Delivery Method Room Air Oxygen Flow Rate 0 Narrative Exam Narrative: GEN: no acute distress CV: regular rate and rhythm, no murmurs PULM: clear bilaterally ABD: soft, minimally tender EXT: warm and well perfused, no edema Objective Labs 04/24/23 05:24 04/24/23 05:24 Labs: Laboratory Results - last 24 hr 04/24/23 04/24/23 05:24 12:54 WBC 7.4 RBC 5.11 Hgb 15.2 Hct 44.7 MCV 87.5 MCH 29.8 MCHC 34.1 RDW 13.9 Plt Count 219 Neut % (Auto) 83.2 H Lymph % (Auto) 10.8 L [place] % (Auto) 5.1 Eos % (Auto) 0.5 L Baso % (Auto) 0.4 Neut # (Auto) 6200 Lymph # (Auto) 800 L [place] # (Auto) 400 Eos # (Auto) 0 Baso # (Auto) 0 Sodium 139 Potassium 4.4 Chloride 103 Carbon Dioxide 27 BUN 9 Creatinine 0.78 Estimated GFR > 60 BUN/Creatinine Ratio 11.5 Glucose 167 H Calcium 9.4 Total Bilirubin 2.4 H AST 313 H ALT 220 H Alkaline Phosphatase 84 Total Protein 8.6 H Albumin 4.8 Globulin 3.8 Albumin/Globulin Ratio 1.3 Lipase 143 Nasal Screen MRSA (PCR) Not detected Assessment & Plan Assessment & Plan narrative: 1. Acute cholecystitis -s/p cholecystectomy with surgery -pain improved -repeat LFTs tomorrow to make sure not rising 2. Type 2 DM -hold metformin today -ordered for insulin sliding scale I have discussed plan with patient. I have discussed plan of care with ED physician, surgeon, bedside nurse. I have reviewed labs, imaging. CODE: Full Proxy: Todd Mike [facility] VTE Deep Vein Thrombosis/Pulmonary Embolism Present on Admission: No MIPS - Meds 'Current medications' to include all prescriptions, [id number] products, herbals, cannabis/cannabidiol products, and vitamin/mineral/dietary (nutritional) supplements. I have utilized all available resources to obtain, update, or review the patient?s current medications. [If Yes, STOP here]: Yes
[2023-04-25 02:00] VITALS: BP 103/57; PULSE 59; RESP 16; TEMP 37.3; O2SAT 97
[2023-04-25] MEDS: OXYCODONE IR 5 MG TABLET PO ×2 (04:02→13:29)
[2023-04-25 05:06] LABS: Add Manual Diff / Slide Review NO; Basophils Absolute Auto 0 /uL (0-100); Basophils Percent Auto 0.2 % (0-2); Eosinophils Absolute Auto 0 /uL (0-450); Hematocrit 39.1 % (41-53); Hemoglobin 13.4 g/dL (13.5-17.5); Lymphocytes Absolute Auto 300 /uL (1100-4500); Lymphocytes Percent Auto 3.2 % (25-40); Mean Corpuscular HGB Conc 34.2 % (30-36); Mean Corpuscular Hemoglobin 30.1 PG (26-34); Mean Corpuscular Volume 87.9 fL (80-100); Monocytes Absolute Auto 500 /uL (0-900); Monocytes Percent Auto 4.7 % (3-14); Neutrophils Absolute Auto 9300 /uL (1500-7000); Neutrophils Percent Auto 91.9 % (50-75); Platelet Count 189 X10^3/uL (150-400); Red Blood Cell Count 4.44 X10^6/uL (4.5-5.9); Red Cell Distribution Width 13.8 % (11.6-14.8); White Blood Cell Count 10.2 X10^3/uL (4.5-11.0)
[2023-04-25 05:22] LABS: Alanine Aminotransferase 302 IU/L (<50); Albumin 3.8 g/dL (3.5-5.0); Albumin Globulin Ratio 1.2 (1.0-2.8); Alkaline Phosphatase 93 U/L (38-126); Aspartate Aminotransferase 196 IU/L (17-59); Bilirubin Total 3.9 mg/dL (0.2-1.3); Bilirubin Unconjugated 1.7 mg/dL (0.0-1.1); Globulin 3.2 g/dL (1.7-4.1); HEMOLYSIS < 15 (0-50)
[2023-04-25 05:24] LABS: BUN Creatinine Ratio 10.5 (6-22); Blood Urea Nitrogen 10 mg/dL (9-20); Calcium 8.6 mg/dL (8.4-10.2); Carbon Dioxide 29 mmol/L (22-32); Chloride 103 mmol/L (98-107); Estimated Glomerular Filt Rate > 60 mL/min (>60); Glucose 157 mg/dL (70-100); HEMOLYSIS < 15 (0-50); Potassium 3.9 mmol/L (3.4-5.1); Sodium 139 mmol/L (137-145)
[2023-04-25] MEDS: PIPERACILLIN/TAZO 3.375 GM in SODIUM CHLORIDE 0.9% 100 ML IV (06:33)
[2023-04-25] MEDS: INSULIN LISPRO 100 UNIT/ML 3ML VIAL SUBCUT ×2 (07:57→12:00)
[2023-04-25 08:00] VITALS: BP 110/55; PULSE 61; RESP 16; TEMP 37.7; O2SAT 96
--- NOTE | 2023-04-25 08:16 | DI.MRI.S_ITS ---
PROCEDURE: MR ABDOMEN WO/W CON INDICATIONS: elevated bili (r/o CBD stone) TECHNIQUE: Coronal HASTE, axial 2D FLASH in- and [id number]; axial breath-hold T2 FSE. Dynamic axial VIBE during the administration of contrast; post-contrast coronal VIBE or 2D FLASH with fat saturation from the hepatic dome to the iliac crests. Optional diffusion weighted imaging and ADC may be performed. COMPARISON: [facility], CT, ABD/PELVIS W/CON (PNL), 04/01/2012, 11:18. [facility], US, US ABDOMEN LIMITED, 04/24/2023, 5:47. FINDINGS: Image quality: Excellent. Lung bases: No basal pleural effusions. Heart size is normal. Solid organs: Liver is normal in size and enhancement. Gallbladder is surgically absent. Susceptibility artifact. Biliary system is non dilated. No choledocholithiasis. Pancreas is normal in morphology. No pancreatic ductal dilatation. Pancreas divisum. Spleen is normal in size and enhancement. No adrenal nodules. Both kidneys demonstrate normal size and enhancement, without hydronephrosis. Nodes and vessels: No retroperitoneal or mesenteric adenopathy by size criteria. Susceptibility artifact near the cecum likely due to prior appendectomy. Aorta and inferior vena cava are normal in size. Bowel and peritoneum: Unenhanced bowel loops are normal in caliber. No free fluid. Bones and soft tissues: No ventral hernias. Mild stranding in the abdominal wall due to recent surgery. Bone marrow is normal in overall signal. IMPRESSION: 1. No choledocholithiasis. No biliary or pancreatic ductal dilatation. 2. Post cholecystectomy. No unexpected fluid collection. 3. Pancreas divisum. Dictated by: Romaine Whittington M.D. on 04/25/2023 at 11:30 Approved by: Romaine Whittington M.D. on 04/25/2023 at 11:49
--- NOTE | 2023-04-25 08:54 | P.PN_ITS ---
Subjective Subjective Date Patient Seen: 04/25/23 Time Patient Seen: 08:54 Interval history: Postop day 1 status post laparoscopic cholecystectomy for acute on chronic cholecystitis. Pain improved from yesterday. Tolerant of diet. Exam Vital Signs (past 8 hours): - 04/25/23 02:00 Temperature 99.2 F Pulse Rate 59 L Respiratory Rate 16 Blood Pressure 103/57 L Pulse Oximetry 97 Oxygen Flow Rate 0 Oxygen Delivery Method Room Air Oxygen Flow Rate 0 Narrative Exam Narrative: General adult man alert oriented no acute distress Abdomen soft appropriately tender to palpation Objective Labs 04/25/23 04:00 04/25/23 04:00 Labs: Laboratory Results - last 24 hr 04/24/23 04/25/23 12:54 04:00 WBC 10.2 RBC 4.44 L Hgb 13.4 L Hct 39.1 L MCV 87.9 MCH 30.1 MCHC 34.2 RDW 13.8 Plt Count 189 Neut % (Auto) 91.9 H Lymph % (Auto) 3.2 L [place] % (Auto) 4.7 Eos % (Auto) 0.0 L Baso % (Auto) 0.2 Neut # (Auto) 9300 H Lymph # (Auto) 300 L [place] # (Auto) 500 Eos # (Auto) 0 Baso # (Auto) 0 Sodium 139 Potassium 3.9 Chloride 103 Carbon Dioxide 29 BUN 10 Creatinine 0.95 Estimated GFR > 60 BUN/Creatinine Ratio 10.5 Glucose 157 H Calcium 8.6 Total Bilirubin 3.9 H Conjugated Bilirubin 1.0 H Unconjugated Bilirubin 1.7 H AST 196 H ALT 302 H Alkaline Phosphatase 93 Total Protein 7.0 Albumin 3.8 Globulin 3.2 Albumin/Globulin Ratio 1.2 Nasal Screen MRSA (PCR) Not detected [facility] Medical History Diabetes mellitus Hyperlipidemia Microalbuminuria (01/2017) Surgical History Status post appendectomy Social History household members: spouse Smoking Status: Former smoker alcohol intake: former Assessment & Plan Post-op Postoperative Procedures: Procedures Operation Date: 04/24/23 17:30 Actual Procedure Side Surgeon p Laparoscopic Cholecystectomy Erickson Whyte MD Postoperative status narrative: 52-year-old man postoperative day 1 status post laparoscopic cholecystectomy for acute on chronic cholecystitis. # hyperbilirubinemia. Present at admission initial total bilirubin was 2.4, 3.9 today with mild transaminitis. Recommend proceeding with MRCP to rule out choledocholithiasis, although suspicion is low based on the severe inflammatory operative findings. Note, there will be a significant amount intra-abdominal fluid on imaging. # diet as tolerated Quality VTE Deep Vein Thrombosis/Pulmonary Embolism Present on Admission: No
--- NOTE | 2023-04-25 09:12 | P.PN_ITS ---
Subjective Subjective Interval history: No RUQ pain, N, or V. Elevated bili. Exam Vital Signs (past 8 hours): - 04/25/23 02:00 04/25/23 08:00 Temperature 99.2 F 99.8 F H Pulse Rate 59 L 61 Respiratory Rate 16 16 Blood Pressure 103/57 L 110/55 L Pulse Oximetry 97 96 Oxygen Flow Rate 0 Oxygen Delivery Method Room Air Oxygen Flow Rate 0 Narrative Exam Narrative: NAD Lungs clear with normal effort CV RRR without M/G/R Abdomen Soft, NT/ND No rash No leg edema Objective Labs 04/25/23 04:00 04/25/23 04:00 Labs: Laboratory Results - last 24 hr 04/24/23 04/25/23 12:54 04:00 WBC 10.2 RBC 4.44 L Hgb 13.4 L Hct 39.1 L MCV 87.9 MCH 30.1 MCHC 34.2 RDW 13.8 Plt Count 189 Neut % (Auto) 91.9 H Lymph % (Auto) 3.2 L [place] % (Auto) 4.7 Eos % (Auto) 0.0 L Baso % (Auto) 0.2 Neut # (Auto) 9300 H Lymph # (Auto) 300 L [place] # (Auto) 500 Eos # (Auto) 0 Baso # (Auto) 0 Sodium 139 Potassium 3.9 Chloride 103 Carbon Dioxide 29 BUN 10 Creatinine 0.95 Estimated GFR > 60 BUN/Creatinine Ratio 10.5 Glucose 157 H Calcium 8.6 Total Bilirubin 3.9 H Conjugated Bilirubin 1.0 H Unconjugated Bilirubin 1.7 H AST 196 H ALT 302 H Alkaline Phosphatase 93 Total Protein 7.0 Albumin 3.8 Globulin 3.2 Albumin/Globulin Ratio 1.2 Nasal Screen MRSA (PCR) Not detected PFSH Medical History Diabetes mellitus Hyperlipidemia Microalbuminuria (01/2017) Surgical History Status post appendectomy Social History household members: spouse Smoking Status: Former smoker alcohol intake: former Assessment & Plan Assessment & Plan narrative: 1. Acute cholecystitis, now with elevated Bilirubin, POA. -s/p cholecystectomy with surgery -pain improved -MRCP today to R/O CBD stone. 2. Type 2 DM, POA. -hold metformin today -ordered for insulin sliding scale 3. Obesity Class 1, POA. I have discussed plan with patient. I have discussed plan of care with ED physician, surgeon, bedside nurse. I have reviewed labs, imaging. CODE: Full Proxy: Todd Mike, family Time Spent With Patient Time with patient: 30 to 49 minutes with 50% spent counseling/coordinating care Quality VTE Deep Vein Thrombosis/Pulmonary Embolism Present on Admission: No
--- NOTE | 2023-04-25 12:34 | PM.CALLCOV.1 ---
Call Coverage Note Note Date of Patient Contact: 04/25/23 Narrative of Care Provided: MRCP reviewed no evidence of obstructing common bile duct stone. He may discharge home if okay with Medicine
--- NOTE | 2023-04-25 14:29 | PM.DS.1 ---
History of Present Illness History of Present Illness Date Patient Seen: 04/25/23 Time Patient Seen: 14:29 Date of Onset of Symptoms: 04/24/23 Chief complaint: rt abd pain Narrative: Mr. Mike is a 52M with PMH DM who presents to the hospital with abdominal pain. He has known gallbladder disease. He had abdominal pain on his right upper quadrant that started after eating yesterday. He also had nausea so he presented to the hospital. In the ED workup was done, vitals showed fever to 101, heart rate 90s. Labs notable for WBC 7.4, hgb 15.2. Bili 2.4, AST 313, ALT 220. Abdominal ultrasound with several stones, gallbladder wall thickened. Surgery was consulted and recommended gallbladder removal. He was admitted for further treatment. Discharge Providers Provider Date of admission: 04/24/23 10:29 Discharge Date: 04/25/23 Primary care physician: Vlad Lozano PA-C Consults: 04/24/23 08:38 Consult to General Surgery Routine Comment: Consulting Provider: Arden Upton Reason for consultation: cholecyctis Has provider been notified: Yes Discharge provider: Artie Lozano MD Summary Hospital Course Discharge Diagnosis: 1. Cholecystitis. POA 2. Elevated bilirubin at discharge with negative MRCP. 3. Pancreas divisum on MRCP 4. DM 5. HLD 6. Morbid obesity. Hospital Course: He was admitted and seen by surgery. He was taken for lap fer without complications and advanced diet. Elevated bili on the day of discharge evaluated with MRCP, negative. Good pain control. Close surgery OP FU. Status at Discharge Cognitive/behavioral status at discharge: oriented Functional status at discharge: independent ambulation Overall status at discharge: patient is back to baseline Time Spent with Patient Time spent: Greater than 30 minutes Exam Vital Signs (past 8 hours): - 04/25/23 07:00 04/25/23 08:00 Temperature 99.8 F H Pulse Rate 61 Respiratory Rate 16 Blood Pressure 110/55 L Pulse Oximetry 96 Oxygen Delivery Method Room Air Oxygen Delivery Method Room Air Oxygen Flow Rate 0 Narrative Exam Narrative: NAD Lungs clear with normal effort CV RRR without M/G/R Abdomen Soft, NT/ND No rash No leg edema Objective Imaging MRI - abdomen: Radiologist's impression: 1. No choledocholithiasis. No biliary or pancreatic ductal dilatation. 2. Post cholecystectomy. No unexpected fluid collection. 3. Pancreas divisum. US - abdomen: Radiologist's impression: Cholelithiasis with several nonmobile stones. Gallbladder wall is borderline thickened. Findings may represent early acute cholecystitis and clinical correlation is recommended. Increased hepatic echogenicity noted possibly related to hepatic steatosis but other sources of hepatocellular disease or hepatic cirrhosis cannot be excluded. Recommend clinical correlation. Labs 04/25/23 04:00 04/25/23 04:00 Labs: Laboratory Results - last 24 hr 04/24/23 04/25/23 12:54 04:00 WBC 10.2 RBC 4.44 L Hgb 13.4 L Hct 39.1 L MCV 87.9 MCH 30.1 MCHC 34.2 RDW 13.8 Plt Count 189 Neut % (Auto) 91.9 H Lymph % (Auto) 3.2 L [place] % (Auto) 4.7 Eos % (Auto) 0.0 L Baso % (Auto) 0.2 Neut # (Auto) 9300 H Lymph # (Auto) 300 L [place] # (Auto) 500 Eos # (Auto) 0 Baso # (Auto) 0 Sodium 139 Potassium 3.9 Chloride 103 Carbon Dioxide 29 BUN 10 Creatinine 0.95 Estimated GFR > 60 BUN/Creatinine Ratio 10.5 Glucose 157 H Calcium 8.6 Total Bilirubin 3.9 H Conjugated Bilirubin 1.0 H Unconjugated Bilirubin 1.7 H AST 196 H ALT 302 H Alkaline Phosphatase 93 Total Protein 7.0 Albumin 3.8 Globulin 3.2 Albumin/Globulin Ratio 1.2 Nasal Screen MRSA (PCR) Not detected [facility] Medical History Diabetes mellitus Hyperlipidemia Microalbuminuria (01/2017) Surgical History Status post appendectomy Social History household members: spouse Smoking Status: Former smoker alcohol intake: former Discharge Assessment & Plan Assessment and Plan Assessment: 1. Cholecystitis. POA 2. Elevated bilirubin at discharge with negative MRCP. 3. Pancreas divisum on MRCP 4. DM 5. HLD 6. Morbid obesity. Plan of Treatment: Discharge with pain medicvations and surgery 1 week follow up. Discharge Plan Discharge Plan Patient Disposition: Home Discharge orders & Medications Prescriptions: New oxycodone 5 mg Tablet 5 mg PO Q3HR PRN (Reason: Pain, Moderate (4-6)) Qty: 20 0RF Continued rosuvastatin 20 mg tablet 20 mg PO DAILY Qty: 7 0RF methimazole 5 mg tablet 5 mg PO Q OTHER DAY atenolol 25 mg tablet 25 mg PO DAILY metformin 1,000 mg Tablet 1,000 mg PO DAILY Follow up/Referrals: Vlad Lozano PA-C [Primary Care Provider] - Erickson Whyte MD [Physician] - 05/02/23 4:30 pm (Appt:05/02 @ 4:[address] Whyte ) Discharge Health Status Multidrug resistant organism: No MDRO Diet/Activity/Treatments Diet: Diet as Tolerated Skin/Wound/Dressing Care Report to your healthcare provider any signs of infection, such as:: chills, fever, increased pain and unusual redness Visit Report/Discharge Packet Stand Alone Forms: Patient Portal/API, Surgery Discharge Discharge Data Primary Care Provider: Vlad Lozano Quality VTE Deep Vein Thrombosis/Pulmonary Embolism Present on Admission: No
--- NOTE | 2023-04-25 15:16 | CM.DANOTE ---
Initial DCP Assessment Note Reviewed EMR and team rounds for medical status and anticipated d/c needs. Met with pt/family to introduce self and role. Pt found to be alert, oriented, ready to d/c home today, family will transport. Payor: [facility] Management, [facility] PCP: Vlad Lozano Attending: Dr. Whyte Pt is a 52 year-old male who presented to the ED on 04/24 due to severe right upper quadrant pain. CT imaging confirmed acute cholecystitis, and he proceeded with laparoscopic cholecystectomy completed also on 04/24. F/u MRCP demonstrates no evidence of obstructing bile duct stone. Plan is for OP f/u PCP. No further d/c needs identified at this time. Discharge Planning/Care Management CM Discharge Assessment Start: 04/25/23 14:55 Freq: Status: Active Protocol: Document 04/25/23 14:55 DPL (Rec: 04/25/23 15:16 DPL [id number]) Discharge Planning Assessment Assigned Horizontal Resaw Operator KILEY Ramos Advance Directives? No Advance Directives on File No History Provided By Patient,Medical Record Has Patient been admitted in last 30 No days? Prior Living Arrangements House Household Members spouse Type of transporation used prior to Drives own vehicle admit Independent with ADL's Yes Is patient alert and oriented? Yes Comment N/A Caregiver for Another No Comment N/A Comment No anticipated d/c needs identified at this time. Barriers to Discharge No Discharge Plan Home Transportation Arrangement N/A Referrals Initiated None needed Review Status In Process Please Provide Date Initial DC 04/25/23 Assessment Was Performed
== END 2023-04-25 15:21 | disposition home or self-care (01) | DRG 419 ==
LOC: ED 09:07 → AC 10:54 → ICU 04-25 08:58 → AC 04-25 11:50
PROVIDERS: Emergency Medicine; Surgery; Admitting Provider Internal Medicine; Emergency Provider Emergency Medicine; PCP Physician Assistant; Referring Provider Emergency Medicine; Visit Provider Internal Medicine
PROC: 0FT44ZZ Resection of Gallbladder, Percutaneous Endoscopic Approach (ICD-10-PCS; CPT 47562; principal; 2023-04-24 17:30)
DX: K80.12 Calculus of gallbladder with acute and chronic cholecystitis without obstruction (principal); E11.9 Type 2 diabetes mellitus without complications; E78.5 Hyperlipidemia, unspecified; K86.89 Other specified diseases of pancreas; Z79.84 Long term (current) use of oral hypoglycemic drugs; Z87.891 Personal history of nicotine dependence
CPT/HCPCS: 36415; 47562; 74183; 76705; 80048; 80053; 80076; 81003; 82962; 83690; 85025; 87797; 96365; 96375; 99222; 99284; 99285; J1100; J1170; J1815; J2250; J2405; J2543; J2704; J3010